=== PATIENT | male | born 1990 | race Caucasian/White ===

== ENCOUNTER 2016-05-26 08:01 | Emergency (ER) | payer SELFPAY | END 2016-05-26 09:42 | disposition home or self-care (01) | LOC: ER 08:01 | DX: R10.12 Left upper quadrant pain (principal); R10.13 Epigastric pain; R11.0 Nausea; K21.9 Gastro-esophageal reflux disease without esophagitis; F17.210 Nicotine dependence, cigarettes, uncomplicated | CPT/HCPCS: 36415; 96372; J1885 ==